=== PATIENT | female | born 1955 | race Caucasian/White ===

== ENCOUNTER 2017-04-25 12:26 | Emergency (ER) | payer OTHER, MEDICARE ==
[~2017-04-25] VITALS: Ht 175.3 cm; Wt 140.6 kg
[2017-04-25 14:20] LABS: HEMATOCRIT 41.5 % (36.0-46.0); MCH 29.9 PG (29.0-34.0); MCHC 33.7 G/DL (30.0-36.0); MCV 88.5 FL (83-99); PLATELET COUNT 175 K/uL (156-360); RBC DIS.WIDTH-CV 13.4 % (11.8-14.6); RBC DIS.WIDTH-SD 43.6 % (39-53); RED BLOOD COUNT 4.69 M/uL (3.80-5.20); WHITE BLOOD COUNT 5.2 K/uL (4.1-10.2)
[2017-04-25 14:33] LABS: CHLORIDE 98 mEq/L (99-109); POTASSIUM 3.8 mEq/L (3.7-5.4); SODIUM 139 mEq/L (136-147)
[2017-04-25 14:34] LABS: GLUCOSE 89 mg/dL (70-99)
[2017-04-25 14:38] LABS: CREATININE 0.8 mg/dL (0.6-1.3); GFR ESTIMATE (CALCULATED) > 59 mL/min/
[2017-04-25 14:39] LABS: UREA NITROGEN (BUN) 9 mg/dL (9-23)
[2017-04-25] MEDS ORDERED: ZITHROMAX Z-PA250 MG PO (15:19)
[2017-04-25 15:51] VITALS: BP 115/80
== END 2017-04-25 15:53 | disposition home or self-care (01) ==
LOC: EME 12:26
DX: J20.9 Acute bronchitis, unspecified (principal); R60.0 Localized edema; Z87.891 Personal history of nicotine dependence; Z85.41 Personal history of malignant neoplasm of cervix uteri; Z85.42 Personal history of malignant neoplasm of other parts of uterus; Z98.84 Bariatric surgery status; Z96.652 Presence of left artificial knee joint; Z88.8 Allergy status to other drugs, medicaments and biological substances
CPT/HCPCS: 80048; 83880; 85027; 99281; 99284